=== PATIENT | female | born 1970 | race Caucasian/White ===

== ENCOUNTER 2022-05-05 02:24 | Inpatient (IN) | payer MEDICARE ==
[2022-05-05] MEDS ORDERED: Ondansetron PF 4 MG/2 ML Vial ONE (02:59)
[2022-05-05] MEDS ORDERED: Dicyclomine 20 MG/2 ML VIAL ONE (03:00)
[2022-05-05 03:04] LABS: #Basophils 0.1 10x3/uL (0.0-0.2); #Eosinphils 0.2 10x3/uL (0.0-0.5); #Neutrophils 14.9 10x3/uL (1.5-8.4); %Basophils 0.5 % (0.0-2.0); %Lymphocytes 13.3 % (18.0-47.0); %Monocytes 5.3 % (0.0-10.0); %Neutrophils 79.5 % (40.0-75.0); Mean Corpuscular Hemoglobin 30.7 pg (27.0-33.0); Mean Corpuscular Volume 87.7 fl (81.6-98.3); Mean Platelet Volume 10.1 fl (7.4-10.4); Platelet Count 239 10x3/uL (150-450); RBC Distribution Width 12.6 % (11.5-14.5); Red Blood Cell (RBC) Count 4.88 10x6/uL (3.90-5.03); White Blood Cell (WBC) Count 18.8 10x3/uL (3.5-10.5)
[2022-05-05 03:14] LABS: PTT 24.5 sec (22.0-33.0); Prothrombin Time 10.4 sec (9.5-12.1)
[2022-05-05 03:20] LABS: ALT (SGPT) 17 U/L (8-55); AST (SGOT) 17 U/L (5-34); Albumin 4.4 g/dL (3.5-5.0); Alkaline Phosphatase 97 U/L (40-110); Anion Gap 17 mmol/L (10-20); BUN (Urea Nitrogen) 15 mg/dL (9.8-20.1); Bilirubin, Total 0.7 mg/dL (0.2-1.2); Calc. Creatinine Clearance 0 mL/min (70-130); Calcium 9.8 mg/dL (7.8-10.44); Carbon Dioxide 20 mmol/L (22-29); Chloride 106 mmol/L (98-107); Estimated GFR 70; Glucose 120 mg/dL (70-105); Lipase 40 U/L (8-78); Potassium 4.2 mmol/L (3.5-5.1); Protein, Total 7.4 g/dL (6.0-8.3); Sodium 139 mmol/L (136-145)
[2022-05-05 03:47] LABS: Bilirubin 1+ (Negative); Blood, Urine 10 (Negative); Clarity Slightly Cloudy (Clear); Glucose, Urine (Dipstick) Normal (Negative); Ketone, Urine 5 mg/dL (Negative); Leukocyte 100 (Negative); Nitrite Negative (Negative); Protein, Urine (Dipstick) 30 mg/dl (Neg-Trace)
[2022-05-05 03:57] LABS: Bacteria/HPF 1+ HPF (None Seen); RBC/HPF 0-3 HPF (0-3); Squamous Epithelial 0-3 HPF (0-3); WBC/HPF 0-3 HPF (0-3)
[2022-05-05] MEDS ORDERED: Morphine 4 MG/ML VIAL ONE (05:20)
[2022-05-05] MEDS ORDERED: Promethazine HCl 12.5 MG in Sodium Chloride 0.9% 50 ML IVPB PRN (06:23)
[2022-05-05] MEDS ORDERED: Promethazine HCl 25 MG/ML VIAL ONE (07:42)
[2022-05-05] MEDS ORDERED: NS 0.9% w/ 20 MEQ KCL 0 ML ONE (07:43)
[2022-05-05] MEDS ORDERED: metroNIDAZOLE 500 MG/100 ML BAG ONE (07:43)
[2022-05-05] MEDS: metroNIDAZOLE 500 MG in Premix Bag 1 BAG IVPB SCH ×2 (08:30→15:20)
[2022-05-05 08:55] LABS: Magnesium 1.8 mg/dL (1.6-2.6)
[2022-05-05] MEDS ORDERED: Iopamidol 300 61% 100 ML VIAL FS ONE (08:57)
[2022-05-05 09:15] LABS: SARS-CoV-2 NAA Rapid Test Not Detected (NotDetected)
[2022-05-05] MEDS: 1/2 NS w/KCL 20 mEq 1,000 ML IV SCH ×2 (09:15→16:59)
[2022-05-05] MEDS ORDERED: Nicotine 14 MG PATCH TD PRN (09:36)
[2022-05-05] MEDS ORDERED: Pantoprazole 40 MG VIAL IVP SCH (10:00)
[2022-05-05] MEDS ORDERED: Pantoprazole 40 MG VIAL ONE (11:15)
[2022-05-05] MEDS ORDERED: Morphine 2 MG/ML VIAL ONE (11:22)
[2022-05-05] MEDS: Morphine 2 MG/ML VIAL SLOW IVP PRN (11:28)
[2022-05-05 12:08] LABS: Hemoglobin 13.6 g/dL (12.0-15.5)
[2022-05-05] MEDS: Morphine 4 MG/ML VIAL SLOW IVP PRN ×3 (15:15→23:35)
[2022-05-05 20:21] VITALS: BMI 29.5
[2022-05-06] MEDS: 1/2 NS w/KCL 20 mEq 1,000 ML IV SCH ×2 (04:00→08:31)
[2022-05-06] MEDS: metroNIDAZOLE 500 MG in Premix Bag 1 BAG IVPB SCH ×3 (04:39→08:30)
[2022-05-06 07:11] LABS: #Eosinphils 0.2 10x3/uL (0.0-0.5); #Monocytes 0.7 10x3/uL (0.0-1.1); #Neutrophils 5.9 10x3/uL (1.5-8.4); %Basophils 0.5 % (0.0-2.0); %Eosinophils 2.6 % (0.0-6.0); %Lymphocytes 16.8 % (18.0-47.0); %Neutrophils 71.9 % (40.0-75.0); Hemoglobin 12.5 g/dL (12.0-15.5); Mean Corpuscular HGB CONC 33.9 g/dL (32.0-36.0); Mean Corpuscular Hemoglobin 30.1 pg (27.0-33.0); Mean Corpuscular Volume 88.9 fl (81.6-98.3); Mean Platelet Volume 10.1 fl (7.4-10.4); Platelet Count 181 10x3/uL (150-450); RBC Distribution Width 12.7 % (11.5-14.5); Red Blood Cell (RBC) Count 4.15 10x6/uL (3.90-5.03); White Blood Cell (WBC) Count 8.2 10x3/uL (3.5-10.5)
[2022-05-06 07:22] LABS: Anion Gap 12 mmol/L (10-20); BUN (Urea Nitrogen) 6 mg/dL (9.8-20.1); Calc. Creatinine Clearance 122 mL/min (70-130); Calcium 8.9 mg/dL (7.8-10.44); Carbon Dioxide 24 mmol/L (22-29); Chloride 107 mmol/L (98-107); Estimated GFR 100; Glucose 98 mg/dL (70-105); Potassium 4.1 mmol/L (3.5-5.1); Sodium 139 mmol/L (136-145)
[2022-05-06 07:34] VITALS: BP 121/66; TEMP 97.2
[2022-05-06] MEDS: Morphine 2 MG/ML VIAL SLOW IVP PRN (08:30)
[2022-05-06] MEDS ORDERED: FLU VACC QS2022-23(6MOS UP)/PF 60 MCG/0.5 ML SYRINGE IM ONE (09:00)
[2022-05-06] MEDS ORDERED: Pantoprazole 40 MG VIAL IVP SCH (09:00)
== END 2022-05-06 12:00 | disposition home or self-care (01) | DRG 394 ==
LOC: CSHERS 02:24 → SUATTDRO 02:24 → CSHERHOLD 08:18 → CSHTELE 12:07
PROVIDERS: ADMIT Student in an Organized Health Care Education/Training Program; ATTEND Nurse Practitioner Acute Care
DX: K55.9 Vascular disorder of intestine, unspecified (principal); N39.0 Urinary tract infection, site not specified; K52.9 Noninfective gastroenteritis and colitis, unspecified; I10 Essential (primary) hypertension; K57.90 Diverticulosis of intestine, part unspecified, without perforation or abscess without bleeding; F17.210 Nicotine dependence, cigarettes, uncomplicated; I44.7 Left bundle-branch block, unspecified; Z20.822 Contact with and (suspected) exposure to COVID-19; Z90.49 Acquired absence of other specified parts of digestive tract; Z98.51 Tubal ligation status; Z98.890 Other specified postprocedural states
CPT/HCPCS: 36415; 74177; 80048; 80053; 81003; 81015; 82274; 83690; 83735; 85025; 85610; 85730; 86850; 86900; 86901; C9113; J1956; J2270; J2272; J2405; J2550; J3480; Q9967; U0002